=== PATIENT | male | born 1965 | race African-American/Black ===

== ENCOUNTER 2024-08-03 11:20 | Emergency (ER) | payer SELFPAY ==
[~2024-08-03] VITALS: Ht 170.2 cm; Wt 72.5 kg
[2024-08-03 11:26] VITALS: TEMP 97.9; O2SAT 98
[2024-08-03 11:28] VITALS: O2SAT 99
[2024-08-03 12:04] VITALS: BP 139/86; PULSE 81; RESP 16
[2024-08-03] MEDS: LIDOCAINE 5% PATCH TOP SCH (12:04)
[2024-08-03] MEDS: KETOROLAC 30MG/ML VIAL IM ONE (12:04)
[2024-08-03] MEDS ORDERED: LIDO700A30 TP (14:32)
[2024-08-03] MEDS ORDERED: IBUP-2029 MT (14:32)
== END 2024-08-03 15:15 | disposition home or self-care (01) ==
LOC: ER 11:20
DX: K40.90 Unilateral inguinal hernia, without obstruction or gangrene, not specified as recurrent (principal); W18.39XA Other fall on same level, initial encounter; Y93.89 Activity, other specified; Y92.89 Other specified places as the place of occurrence of the external cause; Y99.8 Other external cause status
CPT/HCPCS: 72110; 72170; 72131; 72192; 96372; 99285; J1885; Z7610